=== PATIENT | male | born 1940 | race Caucasian/White ===

== ENCOUNTER 2017-01-01 09:53 | Outpatient (CLI) | payer MEDICARE, OTHER ==
[2017-01-01 10:13] LABS: #Eosinphils 0.1 thou/uL (0.0-0.7); #Lymphocytes 1.3 thou/uL (1.20-3.40); #Monocytes 0.3 thou/uL (0.11-0.59); #Neutrophils 2.4 thou/uL (1.40-6.50); %Basophils 0.8 % (0.0-1.0); %Eosinophils 3.1 % (0.0-10.0); %Lymphocytes 31.7 % (21.0-51.0); %Monocytes 7.8 % (0.0-10.0); %Neutrophils 56.6 % (42.0-75.0); Hemoglobin 14.2 g/dL (14.0-18.0); Mean Corpuscular HGB CONC 33.1 g/dL (32.0-36.0); Mean Corpuscular Hemoglobin 29.7 pg (27.0-31.0); Mean Corpuscular Volume 89.5 fl (80.0-94.0); Mean Platelet Volume 8.2 fL (7.4-10.4); Platelet Count 165 thou/uL (130-400); RBC Distribution Width 12.9 % (11.5-14.5); White Blood Cell (WBC) Count 4.2 thou/uL (4.8-10.8)
[2017-01-01 10:34] LABS: ALT (SGPT) 12 U/L (0-55); AST (SGOT) 18 U/L (5-34); Albumin 3.9 g/dL (3.4-4.8); Alkaline Phosphatase 66 U/L (40-150); Anion Gap 13 mmol/L (10-20); BUN (Urea Nitrogen) 8 mg/dL (8.4-25.7); Bilirubin, Total 0.8 mg/dL (0.2-1.2); Calc. Creatinine Clearance 0 mL/min (70-130); Carbon Dioxide 26 mmol/L (23-31); Cardiac Risk 3.3 (Less than 4.5); Chloride 107 mmol/L (98-107); Cholesterol 127 mg/dL (< 200 Desired); Estimated GFR-MDRD 86; Globulin 2.5 g/dL (2.4-3.5); Glucose 97 mg/dL (83-110); HDL Cholesterol 38 mg/dL (>60 Neg Risk); LDL Cholesterol, Calculated 50 mg/dL; Potassium 3.9 mmol/L (3.5-5.1); Protein, Total 6.4 g/dL (5.8-8.1); Sodium 142 mmol/L (136-145); Triglycerides 196 mg/dL (Less than 150)
[2017-01-01 17:23] LABS: Iron 106 ug/dL (65-175)
== END 2017-01-01 09:54 | disposition home or self-care (01) ==
LOC: MADLABBHPM 09:53
PROVIDERS: ATTEND Family Medicine
DX: E78.2 Mixed hyperlipidemia (principal); E11.9 Type 2 diabetes mellitus without complications; D64.9 Anemia, unspecified
CPT/HCPCS: 36415; 80053; 80061; 83036; 83540; 85025

== ENCOUNTER 2017-06-29 09:15 | Outpatient (CLI) | payer MEDICARE, OTHER ==
[2017-06-29 10:06] LABS: Hemoglobin A1c 6.2 % (4.0-6.0)
[2017-06-29 10:14] LABS: ALT (SGPT) 13 U/L (8-55); AST (SGOT) 18 U/L (5-34); Alkaline Phosphatase 82 U/L (40-150); Anion Gap 14 mmol/L (10-20); BUN (Urea Nitrogen) 13 mg/dL (8.4-25.7); Bilirubin, Total 0.8 mg/dL (0.2-1.2); Calc. Creatinine Clearance 0 mL/min (70-130); Calcium 9.1 mg/dL (7.8-10.44); Carbon Dioxide 27 mmol/L (23-31); Cardiac Risk 4.8 (Less than 4.5); Chloride 104 mmol/L (98-107); Cholesterol 152 mg/dl (< 200 Desired); Estimated GFR-MDRD 86; Globulin 3.1 g/dL (2.4-3.5); Glucose 117 mg/dL (83-110); HDL Cholesterol 32 mg/dL (>60 Neg Risk); LDL Cholesterol, Calculated 73 mg/dL; Potassium 3.7 mmol/L (3.5-5.1); Protein, Total 7.1 g/dL (5.8-8.1); Sodium 141 mmol/L (136-145); Triglycerides 235 mg/dL (Less than 150)
[2017-06-29 10:19] LABS: #Basophils 0.1 thou/uL (0.0-0.2); #Eosinphils 0.2 thou/uL (0.0-0.7); #Lymphocytes 1.2 thou/uL (1.20-3.40); #Monocytes 0.4 thou/uL (0.11-0.59); #Neutrophils 2.8 thou/uL (1.40-6.50); %Basophils 1.6 % (0.0-1.0); %Eosinophils 3.9 % (0.0-10.0); %Lymphocytes 25.4 % (21.0-51.0); %Monocytes 8.2 % (0.0-10.0); %Neutrophils 60.9 % (42.0-75.0); Hemoglobin 13.3 g/dL (14.0-18.0); Mean Corpuscular HGB CONC 32.9 g/dL (32.0-36.0); Mean Corpuscular Hemoglobin 29.4 pg (27.0-31.0); Mean Corpuscular Volume 89.4 fl (80.0-94.0); Mean Platelet Volume 9.1 fL (7.4-10.4); Platelet Count 155 thou/uL (130-400); RBC Distribution Width 13.1 % (11.5-14.5); Red Blood Cell (RBC) Count 4.52 mill/uL (4.70-6.10); White Blood Cell (WBC) Count 4.6 thou/uL (4.8-10.8)
== END 2017-06-29 09:16 | disposition home or self-care (01) ==
LOC: MADLABBHPM 09:15
PROVIDERS: ATTEND Family Medicine
DX: E78.2 Mixed hyperlipidemia (principal)
CPT/HCPCS: 36415; 80053; 80061; 82728; 83036; 83540; 85025

== ENCOUNTER 2018-12-21 23:24 | Emergency (ER) | payer MEDICARE, OTHER ==
[2018-12-22 00:05] LABS: #Basophils 0.1 thou/uL (0.0-0.2); #Eosinphils 0.1 thou/uL (0.0-0.7); #Lymphocytes 1.3 thou/uL (1.20-3.40); #Monocytes 0.5 thou/uL (0.11-0.59); #Neutrophils 7.9 thou/uL (1.40-6.50); %Basophils 0.7 % (0.0-1.0); %Eosinophils 0.9 % (0.0-10.0); %Lymphocytes 12.9 % (21.0-51.0); %Monocytes 4.9 % (0.0-10.0); %Neutrophils 80.6 % (42.0-75.0); Mean Corpuscular HGB CONC 33.3 g/dL (32.0-36.0); Mean Corpuscular Volume 90.1 fL (78.0-98.0); Mean Platelet Volume 8.5 fL (7.4-10.4); Platelet Count 199 thou/uL (130-400); RBC Distribution Width 12.5 % (11.5-14.5); Red Blood Cell (RBC) Count 5.01 mill/uL (4.70-6.10); White Blood Cell (WBC) Count 9.9 thou/uL (4.8-10.8)
[2018-12-22] MEDS ORDERED: Morphine 4 MG/ML VIAL ONE ×2 (00:05→01:59)
[2018-12-22] MEDS ORDERED: Sodium Chloride 0.9% 1,000 ML ONE ×2 (00:05→05:11)
[2018-12-22] MEDS ORDERED: Pantoprazole 40 MG VIAL ONE (00:05)
[2018-12-22] MEDS ORDERED: Prochlorperazine 10 MG/2 ML VIAL ONE (00:05)
[2018-12-22 00:23] LABS: ALT (SGPT) 18 U/L (8-55); AST (SGOT) 24 U/L (5-34); Albumin 4.8 g/dL (3.4-4.8); Alkaline Phosphatase 71 U/L (40-150); Anion Gap 15 mmol/L (10-20); BUN (Urea Nitrogen) 16 mg/dL (8.4-25.7); Bilirubin, Total 0.7 mg/dL (0.2-1.2); Calc. Creatinine Clearance 0 mL/min (70-130); Calcium 10.1 mg/dL (7.8-10.44); Carbon Dioxide 25 mmol/L (23-31); Chloride 102 mmol/L (98-107); Estimated GFR-MDRD 76; Globulin 3.3 g/dL (2.4-3.5); Glucose 187 mg/dL (83-110); Lipase 11 U/L (8-78); Potassium 4.2 mmol/L (3.5-5.1); Protein, Total 8.1 g/dL (5.8-8.1); Sodium 138 mmol/L (136-145)
[2018-12-22] MEDS ORDERED: Ondansetron PF 4 MG/2 ML Vial ONE (02:12)
[2018-12-22] MEDS ORDERED: Lidocaine 1% 20 ML MDV ONE (02:22)
[2018-12-22] MEDS ORDERED: Fentanyl 100 MCG/2 ML VIAL ONE (03:11)
--- NOTE | 2018-12-22 14:22 | CT ---
PRELIMINARY REPORT/[facility]/EMERGENTY AFTER-HOURS PROCEDURE CT Abdomen and Pelvis Without Contrast EXAM DATE/TIME: 12/21/2018 11:59 PM CLINICAL HISTORY: 78 years old, male; Pain; Abdominal pain; Epigastric; Patient HX: Severe allergy to iodine. TECHNIQUE: Axial computed tomography images of the abdomen and pelvis without contrast. Coronal and sagittal reformatted images were created and reviewed. COMPARISON: No relevant prior studies available. FINDINGS: Lower thorax: There are widespread coronary artery calcifications. There is a 1.3 cm nodule in the ri ght lung base. Fluid in the esophagus is likely due to reflux. There is a small hiatal hernia. There are bilateral pleural calcifications. ABDOMEN: Liver: Calcifications in the liver are consistent with granulomas. Gallbladder and bile ducts: Normal. No calcified stones. No ductal dilation. Pancreas: Normal. No ductal dilation. Spleen: Calcifications in the spleen are consistent with granulomas. Adrenals: Normal. Kidneys and ureters: Probable right renal cysts measure up to 5.7 cm. Stomach and bowel: The small bowel is dilated measuring up to 2.9 cm in diameter. There is a transiti on area in the lower pelvis and the distal ileum. The terminal ileum is nondilated. There is a small amount of stool in the colon. Stomach is dilated. Appendix: Appendix is not identified. PELVIS: Bladder: Unremarkable as visualized. Reproductive: Unremarkable as visualized. ABDOMEN and PELVIS: Intraperitoneal space: Unremarkable. No free fluid or free air. No fluid collection. Bones/joints: There are degenerative changes in the spine. Soft tissues: A small left inguinal hernia contains a small portion of the sigmoid colon. A right ing uinal hernia contains fat. The cecum is at the opening of the hernia. Vasculature: Calcifications in the [place] of the aorta and other arteries are consistent with atherosc lerosis. No abdominal aortic aneurysm is identified. Lymph nodes: Normal. No enlarged lymph nodes. IMPRESSION: 1. Right lung base nodule. 2. Evidence of distal small bowel obstruction, apparently partial. 3. Additional findings as above. Thank you for allowing us to participate in the care of your patient. Dictated and Authenticated by: Nathan Arellano MD 12/22/2018 1:21 AM Central Time ([place] & [place]) FINAL REPORT CT ABDOMEN AND PELVIS NONCONTRAST PERFORMED ON AN EMERGENCY BASIS: Date: 12/21/18 Time: 0001 hours HISTORY: Flank pain. COMPARISON: 09/14/09. FINDINGS/IMPRESSION: Findings agree with the preliminary report by Manish. No CT evidence of urinary tract obstruction or ca lcification. Lack of contrast limits evaluation for other abnormalities. Evidence of high grade dista l small bowel obstruction. Cause is not apparent. Noncalcified nodule at the right posterior lung bas e has occurred since the 2008 CT chest exam. Metastatic disease is most likely. POS: ANASTASIA
== END 2018-12-22 04:37 | disposition short-term general hospital (02) ==
LOC: MADERS 23:24
DX: K56.609 Unspecified intestinal obstruction, unspecified as to partial versus complete obstruction (principal); I11.0 Hypertensive heart disease with heart failure; E11.9 Type 2 diabetes mellitus without complications
CPT/HCPCS: 74176; 80053; 83605; 83690; 85025; 96361; 96374; 96375; 96376; C9113; J0780; J2001; J2270; J2405; J3010; J7050; J7620

== ENCOUNTER 2020-05-12 20:27 | Emergency (ER) | payer MEDICARE, OTHER ==
[2020-05-12] MEDS ORDERED: Morphine 4 MG/ML VIAL ONE ×2 (21:42→23:59)
[2020-05-12] MEDS ORDERED: Ondansetron PF 4 MG/2 ML Vial ONE (21:43)
[2020-05-12 22:05] LABS: #Basophils 0.1 thou/uL (0.0-0.2); #Eosinphils 0.1 thou/uL (0.0-0.7); #Lymphocytes 1.5 thou/uL (1.20-3.40); #Monocytes 0.5 thou/uL (0.11-0.59); #Neutrophils 6.7 thou/uL (1.40-6.50); %Basophils 0.7 % (0.0-1.0); %Eosinophils 1.1 % (0.0-10.0); %Lymphocytes 16.6 % (21.0-51.0); %Monocytes 5.8 % (0.0-10.0); %Neutrophils 75.8 % (42.0-75.0); Mean Corpuscular HGB CONC 30.5 g/dL (32.0-36.0); Mean Corpuscular Hemoglobin 27.8 pg (27.0-31.0); Mean Corpuscular Volume 90.9 fL (78.0-98.0); Platelet Count 193 thou/uL (130-400); RBC Distribution Width 13.4 % (11.5-14.5); Red Blood Cell (RBC) Count 5.04 mill/uL (4.70-6.10); White Blood Cell (WBC) Count 8.9 thou/uL (4.8-10.8)
[2020-05-12 22:11] LABS: ALT (SGPT) 16 U/L (8-55); AST (SGOT) 18 U/L (5-34); Albumin 4.6 g/dL (3.4-4.8); Alkaline Phosphatase 80 U/L (40-110); Anion Gap 19 mmol/L (10-20); BUN (Urea Nitrogen) 14 mg/dL (8.4-25.7); Bilirubin, Total 0.6 mg/dL (0.2-1.2); Calc. Creatinine Clearance 0 mL/min (70-130); Calcium 9.5 mg/dL (7.8-10.44); Carbon Dioxide 28 mmol/L (23-31); Chloride 101 mmol/L (98-107); Estimated GFR-MDRD 68; Globulin 3.1 g/dL (2.4-3.5); Glucose 189 mg/dL (83-110); Lipase 8 U/L (8-78); Protein, Total 7.7 g/dL (5.8-8.1); Sodium 144 mmol/L (136-145)
--- NOTE | 2020-05-12 22:37 | CT ---
CT Abdomen Pelvis WO Con 05/12/2020 9:41 PM HISTORY: Abdominal pain. COMPARISON: 12/22/2018 Technique: Multiple contiguous axial CT images are obtained through the abdomen and pelvis without IV contrast. Coronal reformats are provided. FINDINGS: This examination is limited for the evaluation of solid organs and vascular structures due to the lac k of intravenous contrast. Lower Chest: Pleural-based calcifications are seen at each lung base. Previously seen nodular density at the right lung base is also again seen with a more discretely visualized calcification seen within this nodule on the current study. Abdomen: Liver: Single calcified granuloma present. Gallbladder: Within normal limits for CT imaging. Pancreas: Grossly normal nonenhanced CT appearance. Spleen: Multiple granulomata. Adrenals: Grossly normal nonenhanced CT appearance. Kidneys: Stable hypodense right renal lesions are seen probably related to renal cysts. Left kidney h as a normal nonenhanced CT appearance. No renal calculi are seen. Ureters: No ureteral calculus is seen.. Pelvis: Urinary bladder: Incompletely distended but grossly within normal limits. Reproductive Organs: No pelvic masses. Lymph Nodes: No enlarged lymph nodes. Bowel: There is evidence of a hiatal hernia with distention of the stomach which is filled with fluid . Loops of small bowel are dilated measuring up to 2.9 cm in diameter. Loops of small bowel are dilated to the level of the lower pelvis where there is an area of feculent appearing material within the distal ileum which could potentially represent a phytobezoar. This is at site of transition to normal caliber loop of small bowel. The colon is decompressed. A similar finding was seen on prior ex am Appendix: The appendix is normal in caliber. Peritoneum: Trace amount of free fluid is seen in the pelvis with minimal amount of fluid in the pres acral location which was also present on prior study. Retroperitoneum: within normal limits. Vessels: Dense vascular calcifications are again seen.. Abdominal Wall: There are small fat-containing bilateral inguinal hernias more prominent on the left. Bones: Degenerative changes are again seen in the spine. There is slight retrolisthesis of L2 on L3. IMPRESSION: 1. High-grade partial small bowel obstruction with transition in the distal ileum of the lower pelvis . Just proximal to the site of transition to normal caliber bowel, there is feculent appearing material within the distal ileum. Findings could potentially be related to a phytobezoar, but this is nonspecific. 2. Right renal cystic lesions similar to prior study. 3. Small hiatal hernia with prominent distention of the stomach with fluid. Fluid is seen within the esophagus probably related to gastroesophageal reflux. 4. Trace amount of free fluid in the abdomen and pelvis.
[2020-05-12] MEDS ORDERED: Sodium Chloride 0.9% 1,000 ML ONE (23:59)
== END 2020-05-13 01:26 | disposition short-term general hospital (02) ==
LOC: MADERS 20:27
DX: K56.600 Partial intestinal obstruction, unspecified as to cause (principal); E11.9 Type 2 diabetes mellitus without complications; I10 Essential (primary) hypertension
CPT/HCPCS: 36415; 74176; 80053; 83605; 83690; 85025; 96361; 96374; 96375; 96376; J2270; J2405; J7050

== ENCOUNTER 2022-01-20 01:14 | Emergency (ER) | payer MEDICARE, OTHER ==
[2022-01-20] MEDS ORDERED: Ondansetron PF 4 MG/2 ML Vial ONE (01:40)
[2022-01-20 01:42] LABS: #Basophils 0.1 thou/uL (0.0-0.2); #Lymphocytes 1.2 thou/uL (1.20-3.40); #Monocytes 0.4 thou/uL (0.11-0.59); #Neutrophils 7.5 thou/uL (1.40-6.50); %Basophils 1.1 % (0.0-1.0); %Eosinophils 0.2 % (0.0-10.0); %Lymphocytes 12.9 % (21.0-51.0); %Monocytes 4.1 % (0.0-10.0); %Neutrophils 81.8 % (42.0-75.0); Hemoglobin 13.9 g/dL (14.0-18.0); Mean Corpuscular HGB CONC 31.5 g/dL (32.0-36.0); Mean Corpuscular Hemoglobin 27.8 pg (27.0-31.0); Mean Corpuscular Volume 88.1 fL (78.0-98.0); Platelet Count 194 thou/uL (130-400); RBC Distribution Width 13.5 % (11.5-14.5); Red Blood Cell (RBC) Count 5.01 mill/uL (4.70-6.10); White Blood Cell (WBC) Count 9.2 thou/uL (4.8-10.8)
[2022-01-20] MEDS ORDERED: Fentanyl 100 MCG/2 ML VIAL ONE (01:46)
[2022-01-20 02:01] LABS: Prothrombin Time 13.3 sec (12.0-14.7)
[2022-01-20 02:04] LABS: Anion Gap 15 mmol/L (10-20); BUN (Urea Nitrogen) 11 mg/dL (8.4-25.7); Calc. Creatinine Clearance 0 mL/min (70-130); Carbon Dioxide 26 mmol/L (23-31); Chloride 102 mmol/L (98-107); Potassium 3.9 mmol/L (3.5-5.1); Sodium 139 mmol/L (136-145)
[2022-01-20 02:05] LABS: ALT (SGPT) 12 U/L (8-55); AST (SGOT) 14 U/L (5-34); Albumin 3.9 g/dL (3.4-4.8); Alkaline Phosphatase 65 U/L (40-110); Bilirubin, Total 0.8 mg/dL (0.2-1.2); Calcium 9.3 mg/dL (7.8-10.44); Globulin 2.8 g/dL (2.4-3.5); Glucose 177 mg/dL (83-110); Lipase 4 U/L (8-78); Magnesium 1.9 mg/dL (1.6-2.6); Protein, Total 6.7 g/dL (5.8-8.1)
[2022-01-20] MEDS ORDERED: Morphine 4 MG/ML VIAL ONE (02:35)
[2022-01-20] MEDS ORDERED: Sodium Chloride 0.9% 1,000 ML ONE (03:02)
== END 2022-01-20 04:05 | disposition short-term general hospital (02) ==
LOC: MADERS 01:14
DX: K56.609 Unspecified intestinal obstruction, unspecified as to partial versus complete obstruction (principal); R19.00 Intra-abdominal and pelvic swelling, mass and lump, unspecified site; E11.9 Type 2 diabetes mellitus without complications; I10 Essential (primary) hypertension; Z79.899 Other long term (current) drug therapy; Z79.82 Long term (current) use of aspirin; Z79.84 Long term (current) use of oral hypoglycemic drugs
CPT/HCPCS: 74176; 80053; 82274; 83605; 83690; 83735; 83880; 85025; 85610; 86850; 86900; 86901; 93005; 96374; 96375; J2270; J2405; J3010; J7050

== ENCOUNTER 2022-03-12 13:45 | Emergency (ER) | payer MEDICARE, OTHER ==
[2022-03-12 13:58] LABS: #Eosinphils 0.1 thou/uL (0.0-0.7); #Lymphocytes 1.7 thou/uL (1.20-3.40); #Monocytes 0.4 thou/uL (0.11-0.59); #Neutrophils 3.8 thou/uL (1.40-6.50); %Basophils 0.5 % (0.0-1.0); %Eosinophils 1.3 % (0.0-10.0); %Lymphocytes 28.4 % (21.0-51.0); %Monocytes 6.7 % (0.0-10.0); %Neutrophils 63.1 % (42.0-75.0); Hemoglobin 12.2 g/dL (14.0-18.0); Mean Corpuscular HGB CONC 31.4 g/dL (32.0-36.0); Mean Corpuscular Hemoglobin 27.2 pg (27.0-31.0); Mean Corpuscular Volume 86.6 fL (78.0-98.0); Mean Platelet Volume 10.2 fL (7.4-10.4); Platelet Count 162 thou/uL (130-400); RBC Distribution Width 14.2 % (11.5-14.5); Red Blood Cell (RBC) Count 4.48 mill/uL (4.70-6.10)
[2022-03-12 14:05] LABS: INR-International Normal Ratio 1.1; PTT 33.4 sec (22.9-36.1); Prothrombin Time 13.8 sec (12.0-14.7)
[2022-03-12 14:15] LABS: ALT (SGPT) 9 U/L (8-55); AST (SGOT) 15 U/L (5-34); Albumin 3.7 g/dL (3.4-4.8); Alkaline Phosphatase 88 U/L (40-110); Anion Gap 16 mmol/L (10-20); BUN (Urea Nitrogen) 8 mg/dL (8.4-25.7); Bilirubin, Total 0.3 mg/dL (0.2-1.2); Calc. Creatinine Clearance 0 mL/min (70-130); Carbon Dioxide 24 mmol/L (23-31); Chloride 106 mmol/L (98-107); Glucose 112 mg/dL (83-110); Potassium 4.1 mmol/L (3.5-5.1); Protein, Total 6.7 g/dL (5.8-8.1); Sodium 142 mmol/L (136-145)
[2022-03-12] MEDS ORDERED: Aspirin Chewable 81 MG TAB ONE (14:36)
== END 2022-03-12 14:58 | disposition short-term general hospital (02) ==
LOC: MADERS 13:45
DX: I63.9 Cerebral infarction, unspecified (principal); E10.9 Type 1 diabetes mellitus without complications; I10 Essential (primary) hypertension; Z85.048 Personal history of other malignant neoplasm of rectum, rectosigmoid junction, and anus; Z86.73 Personal history of transient ischemic attack (TIA), and cerebral infarction without residual deficits; Z79.899 Other long term (current) drug therapy; Z79.84 Long term (current) use of oral hypoglycemic drugs; Z79.82 Long term (current) use of aspirin
CPT/HCPCS: 70450; 80053; 84484; 85025; 85610; 85730; 93005; J2997; 36415; 37195

== ENCOUNTER 2022-10-12 08:08 | Emergency (ER) | payer MEDICARE, OTHER ==
[2022-10-12 10:06] LABS: Bilirubin Negative (Negative); Blood, Urine Negative (Negative); Clarity Clear (Clear); Glucose, Urine (Dipstick) Negative (Negative); Ketone, Urine Negative (Negative); Leukocyte Negative (Negative); Nitrite Negative (Negative); Protein, Urine (Dipstick) Negative (Neg-Trace); Specific Gravity, Urine 1.015 (1.005-1.030); Urobilinogen 0.2 mg/dL (Less than 2)
[2022-10-12 10:10] LABS: #Eosinphils 0.1 thou/uL (0.0-0.7); #Lymphocytes 1.2 thou/uL (1.20-3.40); #Monocytes 0.4 thou/uL (0.11-0.59); #Neutrophils 3.5 thou/uL (1.40-6.50); %Basophils 0.8 % (0.0-1.0); %Eosinophils 1.2 % (0.0-10.0); %Lymphocytes 22.7 % (21.0-51.0); %Monocytes 8.2 % (0.0-10.0); Hemoglobin 10.9 g/dL (14.0-18.0); Mean Corpuscular HGB CONC 31.8 g/dL (32.0-36.0); Mean Corpuscular Hemoglobin 28.2 pg (27.0-31.0); Mean Corpuscular Volume 88.6 fl (78.0-98.0); Mean Platelet Volume 9.8 fL (7.4-10.4); Platelet Count 124 10x3/uL (130-400); RBC Distribution Width 13.7 % (11.5-14.5); Red Blood Cell (RBC) Count 3.87 mill/uL (4.70-6.10); White Blood Cell (WBC) Count 5.2 10x3/uL (4.8-10.8)
[2022-10-12 10:24] LABS: ALT (SGPT) 11 U/L (8-55); AST (SGOT) 15 U/L (5-34); Albumin 3.4 g/dL (3.4-4.8); Alkaline Phosphatase 67 U/L (40-110); Anion Gap 12 mmol/L (10-20); BUN (Urea Nitrogen) 15 mg/dL (8.4-25.7); Bilirubin, Total 0.7 mg/dL (0.2-1.2); CK (CPK) 32 U/L (30-200); Calc. Creatinine Clearance 0 mL/min (70-130); Calcium 8.8 mg/dL (7.8-10.44); Carbon Dioxide 27 mmol/L (23-31); Chloride 107 mmol/L (98-107); Estimated GFR 87; Globulin 2.6 g/dL (2.4-3.5); Glucose 109 mg/dL (83-110); Potassium 3.9 mmol/L (3.5-5.1); Sodium 142 mmol/L (136-145)
[2022-10-12 10:27] LABS: INR-International Normal Ratio 1.1; Prothrombin Time 15.1 sec (12.0-14.7)
[2022-10-12 10:29] LABS: PTT 40.9 sec (22.9-36.1)
== END 2022-10-12 11:10 | disposition home or self-care (01) ==
LOC: MADERS 08:08
DX: S09.90XA Unspecified injury of head, initial encounter (principal); D64.9 Anemia, unspecified; I10 Essential (primary) hypertension; E11.9 Type 2 diabetes mellitus without complications; Z79.899 Other long term (current) drug therapy; Z79.82 Long term (current) use of aspirin; Z20.822 Contact with and (suspected) exposure to COVID-19; Z79.84 Long term (current) use of oral hypoglycemic drugs; Y92.009 Unspecified place in unspecified non-institutional (private) residence as the place of occurrence of the external cause; W06.XXXA Fall from bed, initial encounter
CPT/HCPCS: 70450; 71045; 72125; 72170; 81003; 82550; 82962; 83605; 83735; 85610; 85730; 87804 ×2; 93005; 94760; U0003; U0005; 36416; 80053; 84443; 85025; 96360; 36415-59

== ENCOUNTER 2023-01-24 11:00 | Emergency (ER) | payer MEDICARE, OTHER ==
[2023-01-24] MEDS ORDERED: Sodium Chloride 0.9% 1,000 ML ONE (11:25)
[2023-01-24 11:46] LABS: #Eosinphils 0.1 thou/uL (0.0-0.7); #Lymphocytes 1.2 thou/uL (1.20-3.40); #Monocytes 0.4 thou/uL (0.11-0.59); #Neutrophils 2.8 thou/uL (1.40-6.50); %Basophils 0.9 % (0.0-1.0); %Eosinophils 2.5 % (0.0-10.0); %Neutrophils 60.7 % (42.0-75.0); Hemoglobin 10.9 g/dL (14.0-18.0); Mean Corpuscular Hemoglobin 28.7 pg (27.0-31.0); Mean Corpuscular Volume 89.7 fl (78.0-98.0); Platelet Count 143 10x3/uL (130-400); RBC Distribution Width 15.7 % (11.5-14.5); Red Blood Cell (RBC) Count 3.82 mill/uL (4.70-6.10); White Blood Cell (WBC) Count 4.6 10x3/uL (4.8-10.8)
[2023-01-24 11:56] LABS: ALT (SGPT) 18 U/L (8-55); AST (SGOT) 25 U/L (5-34); Albumin 2.9 g/dL (3.4-4.8); Alkaline Phosphatase 83 U/L (40-110); Anion Gap 12 mmol/L (10-20); BUN (Urea Nitrogen) 10 mg/dL (8.4-25.7); Bilirubin, Total 0.4 mg/dL (0.2-1.2); Calc. Creatinine Clearance 0 mL/min (70-130); Calcium 7.9 mg/dL (7.8-10.44); Carbon Dioxide 23 mmol/L (23-31); Chloride 109 mmol/L (98-107); Estimated GFR 85; Globulin 2.4 g/dL (2.4-3.5); Glucose 197 mg/dL (83-110); Potassium 3.6 mmol/L (3.5-5.1); Protein, Total 5.3 g/dL (5.8-8.1); Sodium 140 mmol/L (136-145)
[2023-01-24 12:46] LABS: Bilirubin Negative (Negative); Blood, Urine Negative (Negative); Clarity Clear (Clear); Glucose, Urine (Dipstick) Negative (Negative); Ketone, Urine Negative (Negative); Leukocyte Negative (Negative); Nitrite Negative (Negative); Protein, Urine (Dipstick) Negative (Neg-Trace); Specific Gravity, Urine 1.015 (1.005-1.030); Urobilinogen 0.2 mg/dL (Less than 2); pH, Urine 5.5 (5.0-9.0)
== END 2023-01-24 13:04 | disposition home or self-care (01) ==
LOC: MADERS 11:00
DX: R53.1 Weakness (principal); E78.00 Pure hypercholesterolemia, unspecified; E11.9 Type 2 diabetes mellitus without complications; Z79.899 Other long term (current) drug therapy; Z79.82 Long term (current) use of aspirin; Z79.84 Long term (current) use of oral hypoglycemic drugs
CPT/HCPCS: 80053; 81003; 85025; 99284; J7050

== ENCOUNTER 2023-01-30 09:53 | Emergency (ER) | payer MEDICARE, OTHER ==
[2023-01-30] MEDS ORDERED: Sodium Chloride 0.9% 1,000 ML ONE (10:27)
[2023-01-30 10:48] LABS: #Basophils 0.1 thou/uL (0.0-0.2); #Eosinphils 0.1 thou/uL (0.0-0.7); #Lymphocytes 1.8 thou/uL (1.20-3.40); #Monocytes 0.6 thou/uL (0.11-0.59); #Neutrophils 4.5 thou/uL (1.40-6.50); %Basophils 0.8 % (0.0-1.0); %Eosinophils 1.2 % (0.0-10.0); %Lymphocytes 24.9 % (21.0-51.0); %Neutrophils 64.1 % (42.0-75.0); Hemoglobin 11.9 g/dL (14.0-18.0); Mean Corpuscular Volume 90.4 fl (78.0-98.0); Mean Platelet Volume 9.6 fL (7.4-10.4); Platelet Count 164 10x3/uL (130-400); RBC Distribution Width 16.3 % (11.5-14.5); Red Blood Cell (RBC) Count 4.24 mill/uL (4.70-6.10); White Blood Cell (WBC) Count 7.1 10x3/uL (4.8-10.8)
[2023-01-30 11:03] LABS: ALT (SGPT) 17 U/L (8-55); AST (SGOT) 23 U/L (5-34); Albumin 3.2 g/dL (3.4-4.8); Alkaline Phosphatase 88 U/L (40-110); Anion Gap 14 mmol/L (10-20); BUN (Urea Nitrogen) 12 mg/dL (8.4-25.7); Bilirubin, Total 0.8 mg/dL (0.2-1.2); Calc. Creatinine Clearance 0 mL/min (70-130); Calcium 8.5 mg/dL (7.8-10.44); Carbon Dioxide 27 mmol/L (23-31); Chloride 103 mmol/L (98-107); Estimated GFR 85; Globulin 2.5 g/dL (2.4-3.5); Glucose 122 mg/dL (83-110); Potassium 4.1 mmol/L (3.5-5.1); Protein, Total 5.7 g/dL (5.8-8.1); Sodium 140 mmol/L (136-145)
[2023-01-30 11:18] LABS: Lipase Less than 4 U/L (8-78)
[2023-01-30] MEDS ORDERED: Ondansetron PF 4 MG/2 ML Vial ONE (11:50)
[2023-01-30 11:55] LABS: Bilirubin Negative (Negative); Blood, Urine Negative (Negative); Clarity Clear (Clear); Glucose, Urine (Dipstick) Negative (Negative); Ketone, Urine Negative (Negative); Leukocyte Negative (Negative); Nitrite Negative (Negative); Protein, Urine (Dipstick) Negative (Neg-Trace); Specific Gravity, Urine 1.015 (1.005-1.030); Urobilinogen 0.2 mg/dL (Less than 2)
== END 2023-01-30 18:41 | disposition left against medical advice (07) ==
LOC: MADERS 09:53
DX: K56.609 Unspecified intestinal obstruction, unspecified as to partial versus complete obstruction (principal); E78.00 Pure hypercholesterolemia, unspecified; E11.9 Type 2 diabetes mellitus without complications; I10 Essential (primary) hypertension; Z79.899 Other long term (current) drug therapy; Z79.82 Long term (current) use of aspirin
CPT/HCPCS: 74176; 80053; 81003; 83690; 85025; 96361; 96374; J2405; J7050

== ENCOUNTER 2023-02-15 15:52 | Outpatient (CLI) | payer MEDICARE, OTHER | END 2023-02-15 15:53 | disposition home or self-care (01) | LOC: MADRAD 15:52 | PROVIDERS: ATTEND Family Medicine | DX: S20.212A Contusion of left front wall of thorax, initial encounter (principal); J98.4 Other disorders of lung | CPT/HCPCS: 71046 ==

== ENCOUNTER 2023-02-27 19:02 | Emergency (ER) | payer OTHER, MEDICARE ==
[2023-02-27] MEDS ORDERED: Dexamethasone 10 MG/ML VIAL ONE (19:45)
[2023-02-27] MEDS ORDERED: Ketorolac Tromethamine 30 MG/ML VIAL ONE (19:45)
[2023-02-27] MEDS ORDERED: Boostrix 0.5 ML (Tdap) VIAL (>/=7 yrs of age) ONE (19:51)
== END 2023-02-27 20:14 | disposition home or self-care (01) ==
LOC: MADERS 19:02
DX: S50.01XA Contusion of right elbow, initial encounter (principal); E78.00 Pure hypercholesterolemia, unspecified; E11.9 Type 2 diabetes mellitus without complications; I10 Essential (primary) hypertension; Z79.899 Other long term (current) drug therapy; Z79.82 Long term (current) use of aspirin; Z79.84 Long term (current) use of oral hypoglycemic drugs; W01.0XXA Fall on same level from slipping, tripping and stumbling without subsequent striking against object, initial encounter
CPT/HCPCS: 90471; 90715; 96372; J1100; J1885

== ENCOUNTER 2023-06-08 05:28 | Emergency (ER) | payer MEDICARE, OTHER ==
[2023-06-08 06:42] LABS: #Eosinphils 0.1 thou/uL (0.0-0.7); #Lymphocytes 1.6 thou/uL (1.20-3.40); #Monocytes 0.4 thou/uL (0.11-0.59); #Neutrophils 3.5 thou/uL (1.40-6.50); %Basophils 0.5 % (0.0-1.0); %Eosinophils 1.5 % (0.0-10.0); %Lymphocytes 28.4 % (21.0-51.0); %Monocytes 6.6 % (0.0-10.0); Hematocrit 33.7 % (42.0-52.0); Mean Corpuscular HGB CONC 32.7 g/dL (32.0-36.0); Mean Corpuscular Hemoglobin 30.3 pg (27.0-31.0); Mean Corpuscular Volume 92.7 fl (78.0-98.0); Platelet Count 145 10x3/uL (130-400); RBC Distribution Width 16.4 % (11.5-14.5); Red Blood Cell (RBC) Count 3.63 mill/uL (4.70-6.10); White Blood Cell (WBC) Count 5.5 10x3/uL (4.8-10.8)
[2023-06-08 06:48] LABS: Bilirubin Negative (Negative); Blood, Urine Negative (Negative); Clarity Clear (Clear); Glucose, Urine (Dipstick) Negative (Negative); Ketone, Urine Negative (Negative); Leukocyte Negative (Negative); Nitrite Negative (Negative); Protein, Urine (Dipstick) Negative (Neg-Trace); Specific Gravity, Urine 1.015 (1.005-1.030); Urobilinogen 0.2 mg/dL (Less than 2)
[2023-06-08 06:53] LABS: Bacteria/HPF Rare-Few HPF (None Seen); CAUTI Indications for Culture Alt mental st,lethar; RBC/HPF 0-3 HPF (0-3); Squamous Epithelial 0-3 HPF (0-3); WBC/HPF 0-3 HPF (0-3)
[2023-06-08 06:54] LABS: Urine Culture Reflex No No
[2023-06-08 07:01] LABS: ALT (SGPT) 33 U/L (8-55); AST (SGOT) 45 U/L (5-34); Albumin 2.4 g/dL (3.4-4.8); Alkaline Phosphatase 104 U/L (40-110); Anion Gap 12 mmol/L (10-20); BUN (Urea Nitrogen) 15 mg/dL (8.4-25.7); Bilirubin, Total 0.5 mg/dL (0.2-1.2); Calc. Creatinine Clearance 0 mL/min (70-130); Calcium 7.9 mg/dL (7.8-10.44); Carbon Dioxide 24 mmol/L (23-31); Chloride 109 mmol/L (98-107); Estimated GFR 86; Globulin 2.1 g/dL (2.4-3.5); Glucose 81 mg/dL (83-110); Protein, Total 4.5 g/dL (5.8-8.1); Sodium 141 mmol/L (136-145)
== END 2023-06-08 07:30 | disposition home or self-care (01) ==
LOC: MADERS 05:28
DX: M21.331 Wrist drop, right wrist (principal); E88.09 Other disorders of plasma-protein metabolism, not elsewhere classified; R60.9 Edema, unspecified; G56.31 Lesion of radial nerve, right upper limb; I11.0 Hypertensive heart disease with heart failure; I50.30 Unspecified diastolic (congestive) heart failure; E78.00 Pure hypercholesterolemia, unspecified; E11.9 Type 2 diabetes mellitus without complications; Z79.899 Other long term (current) drug therapy; Z79.82 Long term (current) use of aspirin
CPT/HCPCS: 80053; 81001; 83880; 85025

== ENCOUNTER 2023-06-12 12:17 | Emergency (ER) | payer MEDICARE, OTHER | END 2023-06-12 13:30 | disposition home or self-care (01) | LOC: MADERS 12:17 | DX: S90.32XA Contusion of left foot, initial encounter (principal); S90.31XA Contusion of right foot, initial encounter; I11.0 Hypertensive heart disease with heart failure; I50.9 Heart failure, unspecified; R60.0 Localized edema; E11.9 Type 2 diabetes mellitus without complications; W01.0XXA Fall on same level from slipping, tripping and stumbling without subsequent striking against object, initial encounter; Y92.002 Bathroom of unspecified non-institutional (private) residence as the place of occurrence of the external cause; Z86.73 Personal history of transient ischemic attack (TIA), and cerebral infarction without residual deficits | CPT/HCPCS: 99283 ==

== ENCOUNTER 2023-11-05 00:25 | Emergency (ER) | payer MEDICARE, OTHER ==
[2023-11-05] MEDS ORDERED: Acetaminophen 500 MG TAB ONE (02:18)
== END 2023-11-05 00:29 | disposition home or self-care (01) ==
LOC: MADERS 00:25
DX: S00.01XA Abrasion of scalp, initial encounter (principal); E78.00 Pure hypercholesterolemia, unspecified; E11.9 Type 2 diabetes mellitus without complications; I10 Essential (primary) hypertension; Z79.899 Other long term (current) drug therapy; W18.39XA Other fall on same level, initial encounter
CPT/HCPCS: 70450; 72125

== ENCOUNTER 2023-12-29 14:37 | Emergency (ER) | payer MEDICARE, OTHER ==
[2023-12-29] MEDS ORDERED: HYDROcodone/Acetaminophen 5/325 mg Tablet ONE (14:57)
== END 2023-12-29 16:00 | disposition home or self-care (01) ==
LOC: MADERS 14:37
DX: S30.0XXA Contusion of lower back and pelvis, initial encounter (principal); M47.9 Spondylosis, unspecified; E11.9 Type 2 diabetes mellitus without complications; I10 Essential (primary) hypertension; W01.0XXA Fall on same level from slipping, tripping and stumbling without subsequent striking against object, initial encounter
CPT/HCPCS: 72100

== ENCOUNTER 2024-02-25 12:53 | Emergency (ER) | payer MEDICARE, OTHER ==
[2024-02-25 13:42] LABS: #Basophils 0.1 thou/uL (0.0-0.2); #Lymphocytes 1.2 thou/uL (1.20-3.40); #Monocytes 0.5 thou/uL (0.11-0.59); #Neutrophils 5.5 thou/uL (1.40-6.50); %Basophils 0.7 % (0.0-1.0); %Eosinophils 0.2 % (0.0-10.0); %Lymphocytes 16.3 % (21.0-51.0); %Monocytes 6.7 % (0.0-10.0); %Neutrophils 76.1 % (42.0-75.0); Hematocrit 32.4 % (42.0-52.0); Hemoglobin 9.8 g/dL (14.0-18.0); Mean Corpuscular HGB CONC 30.1 g/dL (32.0-36.0); Mean Corpuscular Hemoglobin 28.2 pg (27.0-31.0); Mean Corpuscular Volume 93.7 fl (78.0-98.0); Mean Platelet Volume 6.5 fL (7.4-10.4); Platelet Count 207 10x3/uL (130-400); RBC Distribution Width 14.7 % (11.5-14.5); Red Blood Cell (RBC) Count 3.46 mill/uL (4.70-6.10); White Blood Cell (WBC) Count 7.2 10x3/uL (4.8-10.8)
[2024-02-25 13:50] LABS: ALT (SGPT) 32 U/L (8-55); AST (SGOT) 37 U/L (5-34); Albumin 2.2 g/dL (3.4-4.8); Alkaline Phosphatase 145 U/L (40-110); Anion Gap 14 mmol/L (10-20); BUN (Urea Nitrogen) 22 mg/dL (8.4-25.7); Bilirubin, Total 0.9 mg/dL (0.2-1.2); Calc. Creatinine Clearance 0 mL/min (70-130); Calcium 7.7 mg/dL (7.8-10.44); Carbon Dioxide 23 mmol/L (23-31); Chloride 106 mmol/L (98-107); Estimated GFR 87; Globulin 2.4 g/dL (2.4-3.5); Glucose 66 mg/dL (83-110); Potassium 4.3 mmol/L (3.5-5.1); Protein, Total 4.6 g/dL (5.8-8.1); Sodium 139 mmol/L (136-145)
[2024-02-25 14:15] LABS: Bilirubin Small (Negative); Blood, Urine Negative (Negative); Glucose, Urine (Dipstick) Negative (Negative); Ketone, Urine Negative (Negative); Leukocyte Negative (Negative); Nitrite Negative (Negative); Protein, Urine (Dipstick) Negative (Neg-Trace)
[2024-02-25 14:17] LABS: Clarity Hazy (Clear)
[2024-02-25 14:24] LABS: Bacteria/HPF None Seen HPF (None Seen); CAUTI Indications for Culture Dysuria,urgency,freq; Mucous/LPF 1+ LPF (<2+); RBC/HPF 0-3 HPF (0-3); Squamous Epithelial 0-3 HPF (0-3); WBC/HPF 0-3 HPF (0-3)
[2024-02-25 14:25] LABS: Urine Culture Reflex No No
[2024-02-25] MEDS ORDERED: Acetaminophen 500 MG TAB ONE (16:57)
[2024-02-25] MEDS ORDERED: traMADol HCl 50 MG TAB ONE (20:29)
== END 2024-02-25 21:05 | disposition short-term general hospital (02) ==
LOC: MADERS 12:53
DX: R53.1 Weakness (principal); E87.70 Fluid overload, unspecified; E11.9 Type 2 diabetes mellitus without complications; E78.5 Hyperlipidemia, unspecified; I10 Essential (primary) hypertension; Z79.899 Other long term (current) drug therapy
CPT/HCPCS: 36415; 80053; 81001; 85025; 99285